=== PATIENT | male | born 1985 | race Caucasian/White ===

== ENCOUNTER 2021-07-06 11:03 | Outpatient (CLI) | payer BC, SELFPAY ==
--- NOTE | 2021-07-06 13:41 | NEURO ---
NCS and/or EMG Patient Report Ordering Doctor: Zeyad Whelan DATE OF SERVICE: 07/06/21 Indication: Intermittent bilateral hand weakness, worse following prolonged activity. No weakness in other distributions. No sensory disturbances. Findings: Nerve conduction studies were performed in the right and left upper extremities. The right median motor study recording the abductor pollicis brevis showed a normal amplitude, normal distal latency and normal conduction velocity. The right ulnar motor study recording the abductor digiti minimi showed a normal amplitude, normal distal latency and normal conduction velocity. No conduction block or focal slowing was present across the elbow. The right median sensory response recording digit two showed a normal amplitude, latency and conduction velocity. The right ulnar sensory response recording digit five showed a normal amplitude, latency and conduction velocity. The right radial sensory response recording over the extensor snuff box showed a normal amplitude, latency and conduction velocity. The left median motor study recording the abductor pollicis brevis showed a normal amplitude, normal distal latency and normal conduction velocity. The left ulnar motor study recording the abductor digiti minimi showed a normal amplitude, normal distal latency and normal conduction velocity. No conduction block or focal slowing was present across the elbow. The left median sensory response recording digit two showed a normal amplitude, latency and conduction velocity. The left ulnar sensory response recording digit five showed a normal amplitude, latency and conduction velocity. The left radial sensory response recording over the extensor snuff box showed a normal amplitude, latency and conduction velocity. Repetitive nerve stimulation at 3 Hz of the left median nerve, recording the abductor pollicis brevis, showed no abnormal decrement at baseline or following one minute of isometric exercise. Needle EMG of the left upper extremity and paraspinal muscles was performed. No denervation was present in any muscle. Motor unit morphology, activation, and recruitment patterns were normal. Examination of the right upper extremity was omitted due to the paucity of findings on the left. Impression: This is a normal study. There is no electrophysiologic evidence of entrapment neuropathy, cervical radiculopathy or myopathy in the left upper extremity. In addition, slow repetitive nerve stimulation of the abductor pollicis brevis did not reveal a decrement suggestive of a neuromuscular junction transmission disorder. Kt Miller D.O. Multi Select Codes Neurology Neurology Interp Codes: 26425-93 Musc test done w/n test comp (interp) and 71083-31 Nr monikj test 11-12 studies (interp)
== END 2021-07-06 23:59 | disposition short-term general hospital (02) ==
PROVIDERS: PCP Internal Medicine; Referring Provider Internal Medicine; Visit Provider Internal Medicine
DX: M62.81 Muscle weakness (generalized) (principal)
CPT/HCPCS: 95886; 95913; 95937